=== PATIENT | female | born 1985 | race Caucasian/White ===

== ENCOUNTER 2017-02-24 14:56 | Outpatient (CLI) | payer SELFPAY ==
--- NOTE | 2017-02-24 15:48 | History and Physical Report ---
History of Present Illness Date of examination: 02/24/17 Chief complaint: Nephrotic range proteinuria IUP at 23 weeks History of present illness: 31-year-old at 22 weeks (ELY 06/30/17) presents with above complaints and issues, she is a [employer] patient. She is seen at [facility]. She speaks Micronesian only with limited Botswanan and translation from family members. Patient appears to have a history of elevated blood pressures in the less than severe range. Blood pressures range from 130s to 150s over 70s to 90s. She had a recent 24-hour urine protein ordered (01/20/17) which shows 24 hr protein of 3450 mg. Electrolytes also obtained 01/19/17 shows BUN/CR - 58/~4, potassium was 5.5. She was seen by [facility] on 02/21/2017. Patient apparently did not stay for perinatology consultation after ultrasound. 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 denies: smoking, alcohol abuse, prescription drug abuse, IV drug use - Obstetrical History Expected Date of Delivery: 06/30/17 Actual Gestation: 22 Week(s) 0 Day(s) : 4 Para: 3 Results All other labs normal. Assessment and Plan A: 31-year-old 003 at 22 weeks with heavy proteinuria Issues: -Micronesian Speak only -24 hr urine protein w/ 3450 mg on 01/19/17 -Renal failure (BUN/CR - 58/4) on 01/19/17 -Elevated BP -EFW 331 g (3%) on 02/21/17 at [facility] clinic P: -Admit -24 hour urine protein and electrolytes -Consult [facility] and nephrology -Disposition after workup complete - Patient Problems (1) 22 weeks gestation of Current Visit: Yes Status: Acute (2) Nephrotic range proteinuria Current Visit: Yes Status: Acute (3) Renal failure affecting in second trimester Current Visit: Yes Status: Acute
[2017-02-24] MEDS ORDERED: COLACE PO PRN (16:10)
[2017-02-24] MEDS ORDERED: TYLENOL PO PRN (16:10)
[2017-02-24 18:26] LABS: Albumin 3.3 g/dL (3.9-5); Albumin/Globulin Ratio 1.1 %; BUN/Creatinine Ratio 11.57; Bilirubin,Total 0.2 mg/dL (0.1-1.2); Calcium 7.5 mg/dL (8.4-10.2); Chloride 103.2 mmol/L (98-107); Potassium 4.6 mmol/L (3.6-5.0); Total Protein 6.4 g/dL (6.3-8.2)
[2017-02-24] MEDS ORDERED: APRESOLINE IV PRN (20:01)
[2017-02-24] MEDS ORDERED: NACL 0.9% 1000 ML 1,000 ML IV SCH (21:00)
[2017-02-24] MEDS: NORMODYNE PO SCH (21:48)
[2017-02-24 22:30] LABS: Bacteria,Urine 2+ /HPF (Negative); Bilirubin,Urine NEG (Negative); Blood,Urine MOD (Negative); Ketones,Urine NEG (Negative); Leukocyte Esterase,Urine TR (Negative); Nitrite,Urine NEG (Negative); Urobilinogen,Urine < 2.0 mg/dL (<2.0)
[2017-02-25 07:16] LABS: Basophils % (Auto) 0.6 % (0.0-1.8); Eosinophils % (Auto) 1.7 % (0.0-4.3); Hemoglobin 6.4 gm/dl (10.1-14.3); Mean Corpuscular HGB Conc 33 % (30-34); Mean Corpuscular Hemoglobin 30 pg (28-32); Mean Corpuscular Volume 92 fl (79-97); Platelet Count 169 K/mm3 (140-440); Red Cell Distribution Width 13.8 % (13.2-15.2); White Blood Count 7.7 K/mm3 (4.5-11.0)
[2017-02-25 07:20] LABS: Hematocrit 19.4 % (30.3-42.9)
[2017-02-25 07:39] LABS: Bilirubin,Total 0.2 mg/dL (0.1-1.2); Calcium 7.2 mg/dL (8.4-10.2); Chloride 106.3 mmol/L (98-107); Phosphorous 5.1 mg/dL (2.5-4.5); Potassium 4.9 mmol/L (3.6-5.0); Total Protein 5.9 g/dL (6.3-8.2)
[2017-02-25] MEDS ORDERED: NACL 0.9% 500 ML 500 ML IV ONE (07:40)
[2017-02-25] MEDS ORDERED: TYLENOL PO ONE (07:41)
[2017-02-25] MEDS ORDERED: BENADRYL IV ONE (07:41)
--- NOTE | 2017-02-25 08:10 | Consultation ---
History of Present Illness - Reason for Consult Consult date: 02/25/17 acute renal failure, chronic renal failure, metabolic acidosis - History of Present Illness The patient is a 31 year old HF who is 22 weeks (ELY 06/30/17) presented to [facility] for further evaluation of Proteinuria and elevated creatinine. Patient speaks very little Chadian and the language line was not working at that time. Patient was seen at [facility]. Labs done on 01/17/17 showed creatinine of 3.93, K 5.5, 24 hr Urine creatinine 644 mg and 24 hr urine protein 3.5 gms. Her BP is moderately elevated. No prior h/o Kidney stone, CKD, ESRD or recurrent UTIs. Denies taking any meds on a regular basis. Labs done in the hospital showed creatinine of 6, Hb 6.4 and bicarb 16. No N, V, D, abd pain or weakness. Past History Social history: , full code. denies: smoking, alcohol abuse, prescription drug abuse, IV drug use Medications and Allergies Allergies Allergy/AdvReac Type Severity Reaction Status Date / Time No Known Allergies Allergy Unverified 02/24/17 16:51 Home Medications Medication Instructions Recorded Confirmed Last Taken Type Labetalol [Normodyne] 200 mg PO BID 02/24/17 02/24/17 02/24/17 10:00 History Active Meds: Active Medications Acetaminophen (Tylenol) 650 mg PO Q4H PRN PRN Reason: Pain MILD(1-3)/Fever >100.5/YANEZ Docusate Sodium (Colace) 100 mg PO Q12H PRN PRN Reason: Constipation Hydralazine HCl (Apresoline) 5 mg IV Q30MIN PRN PRN Reason: HTN SYS>170 AND/OR ARGELIA >110 Sodium Chloride (Nacl 0.9% 1000 Ml) 1,000 mls @ 60 mls/hr IV DIRECT LILA Last Admin: 02/24/17 21:48 Dose: 60 mls/hr Labetalol HCl (Normodyne) 200 mg PO BID LILA Last Admin: 02/24/17 21:48 Dose: 200 mg Multivitamins/Iron/Calcium ( Vitamin) 1 each PO QDAY LILA Review of Systems Constitutional: other (Unable to obtain a detail ROS due to language barrier.) Exam - Vital Signs Vital signs: Vital Signs Pulse Pulse Ox 72 98 06/22/17 16:24 02/24/17 16:24 - General Appearance General appearance: well-developed, well-nourished, appears stated age, other ( no distress) EENT: ATNC, PERRL, mucous membranes moist, hearing intact, vision intact Neck: Present: neck supple, trachea midline Respiratory: Clear to Ascultation Heart: regular, S1S2, no murmurs Gastrointestinal: Present: normoactive bowel sounds, distended Integumentary: no rash, warm and dry Neurologic: no focal deficit, no asterixis, CN 3-12 intact Musculoskeletal: Present: other (no edema) Psychiatric: mood/affect appropriate, cooperative Results - Lab Results 02/25/17 06:22 02/25/17 06:22 Most recent lab results Calcium 7.2 mg/dL (8.4-10.2) L 02/25/17 06:22 Phosphorus 5.10 mg/dL (2.5-4.5) H 02/25/17 06:22 Urine Creatinine 51.8 mg/dL (0.1-20.0) H 02/24/17 21:45 Urine Sodium 55 mEq/L 02/24/17 21:45 - Image Kidney/bladder ultrasound: report reviewed Assessment and Plan - Patient Problems (1) STACY (acute kidney injury) Status: Acute Plan to address problem: Patient with Acute Kidney Injury superimposed on CKD (unknown stage). Etiology of STACY associated with Nephrotic range proteinuria includes Lupus, ANCA associated kidney Injury, membranous nephropathy, vasculitis. Labs including complements and autoantibodies ordered. Kidney biopsy is not an option until after delivery. No evidence of Uremia at this time. Given the complexity of the medical condition it is better to transfer the patient to higher center like [place] for further management. D/w the e commerce merchant and Attending physician and both are in agreement. (2) Nephrotic range proteinuria Status: Chronic (3) 22 weeks gestation of Status: Acute (4) Essential (primary) hypertension Status: Acute Plan to address problem: Labetalol. Monitor BP.
--- NOTE | 2017-02-25 09:19 | Event Note ---
Date: 02/25/[address] Escalona this am and he recommends that she be transferred to [place]. Dr. Villasenor in agreement. DX renal failure at 22 weeks gestation[address] Cavazos, to be admitted to .
--- NOTE | 2017-02-25 09:19 | Ultrasound Report ---
Renal sonogram: History: Acute renal failure. Findings: Right kidney 12.7 x 5.5 x 5.3 cm. Cortical thickness 1.5 cm. Uniform increase in echogenicity with blurring of the cortical medullary margin. Left kidney 11.7 x 3.8 x 4.2 cm. Cortical thickness 1.6 cm. Uniform increase in echogenicity with blurring of the corticomedullary junction. No mass. No hydronephrosis. Impression: Findings as detailed above.
[2017-02-25] MEDS ORDERED: PRENATAL VITAMIN PO SCH (10:00)
[2017-02-25] MEDS: NORMODYNE PO SCH (10:13)
[2017-02-25 11:16] VITALS: BP 126/72
--- NOTE | 2017-02-25 11:49 | Discharge Summary ---
Providers - Providers Date of discharge: 02/25/17 Attending physician: KELVIN RAMIREZ MD 02/24/17 16:10 Consult to Physician [CONS] Routine Consulting Provider: GERI ARORA Reason For Exam: nephrotic range proteinuria Place consult to:: yes Notified:: OFFICE Phone number called:: [phone] Was contact made?: Yes If yes, spoke with:: DR MILE MONTENEGRO Time called:: 16:46 Comment:: DR SEGAL TALKED TO 02/24/17 16:16 Consult to Physician [CONS] Routine Consulting Provider: TC POWER Reason For Exam: IUP at 22 wks, nephrotic range proteinuria, CRF? Place consult to:: yes Notified:: OFFICE [phone] Phone number called:: [phone] Was contact made?: Yes If yes, spoke with:: ADDIE Time called:: 16:45 Comment:: WILL CALL BACK Hospitalization Reason for admission: IUP - , other (Acute/Chronic Renal failure) Other procedures: none complications: none Discharge diagnosis: other (IUP @ 22 weeks; Acute/Chronic renal failure) Condition at discharge: Serious Disposition: [id number] ANOTHER TYPE HLTHCARE - Discharge Diagnoses (1) 22 weeks gestation of Status: Acute (2) Nephrotic range proteinuria Status: Acute (3) Renal failure affecting in second trimester Status: Acute Plan - Provider Discharge Summary Activity: routine Diet: routine Instructions: routine Additional instructions: [] Smoking cessation referral if applicable(refer to patient education folder for contact #) [] Refer to [facility]'s [facility] Booklet Call your doctor immediately for: * Fever > 100.5 * Heavy vaginal bleeding ( >1 pad per hour) * Severe persistent headache * Shortness of breath * Reddened, hot, painful area to leg or breast * Drainage or odor from incision. * Keep incision clean and dry at all times and follow doctor's instructions regarding bathing/showering Transfer to [place] - Follow up plan Follow up: KELVIN BANGURA MD [Staff Physician] - 7 Days
== END 2017-02-25 11:45 | disposition other institution (70) ==
LOC: TRG 14:56 → LD 14:57 → TRG 02-25 11:45
PROVIDERS: ATTEND Obstetrics & Gynecology
DX: O10.212 Pre-existing hypertensive chronic kidney disease complicating pregnancy, second trimester (principal); Z3A.22 22 weeks gestation of pregnancy
CPT/HCPCS: 36415; 76770; 80053; 81001; 82550; 82565; 82570; 83970; 84100; 84300; 85025; 86021; 86038; 86160; 86850; 86900; 86901; 86920; 89050; J7030; 82575